=== PATIENT | male | born 1990 | race Caucasian/White ===

== ENCOUNTER → 2017-09-15 | Outpatient (CLI) | payer BC ==
[2017-09-15 22:14] LABS: ALBUMIN 4.6 g/dL (3.5-5.0); DIRECT BILIRUBIN 0.5 mg/dL (0.0-0.4); TOTAL BILIRUBIN 2.3 mg/dL (0.2-1.3); TOTAL PROTEIN 8.4 g/dL (6.3-8.2)
== END ==
LOC: LAB 16:53
PROVIDERS: Family Medicine
DX: R10.13 Epigastric pain (principal); R19.8 Other specified symptoms and signs involving the digestive system and abdomen; R14.0 Abdominal distension (gaseous); E80.6 Other disorders of bilirubin metabolism

== ENCOUNTER → 2017-10-14 | Outpatient (CLI) | payer BC | LOC: RAD 07:04 | DX: E80.6 Other disorders of bilirubin metabolism (principal); R10.13 Epigastric pain; R19.8 Other specified symptoms and signs involving the digestive system and abdomen; R14.0 Abdominal distension (gaseous) ==